=== PATIENT | female | born 2000 | race Caucasian/White ===

== ENCOUNTER 2020-02-06 20:03 | Emergency (ER) | payer BC, SELFPAY ==
--- NOTE | 2020-02-06 20:32 | PC.NURSE ---
PATIENT TO NVC FROM REGISTRATION AT THIS TIME
[2020-02-06 20:35] VITALS: BP 146/77; PULSE 82; RESP 19; TEMP 36.9; O2SAT 99; BMI 31.9
--- NOTE | 2020-02-06 20:48 | HMH.EDUTC ---
[facility] Disposition Clinical Impression: Viral upper respiratory infection, Encounter for laboratory testing for COVID-19 virus Disposition: Home, Self-Care Condition on Discharge: Good Instructions: DI for Viral Upper Respiratory Infection -- Adult, Preventing the Spread of Coronavirus Discharge Instructions Additional Instructions: *Monitor Temp, Over the counter Motrin or Tylenol as directed/as needed Tylenol every 4 hours and Motrin every 6 hours (as long as your family doctor has told you that you can take it) for fever or pain. and straight to ER if unable to lower temp less than 101.0 after medication given *Warm salt water gargles may help to soothe the throat *Throat Lozenges *Warm fluids like tea with honey may help to soothe the throat *Sleep elevated *Humidifier/Vaporizer Your throat swab was sent for culture. Those results are typically sent to your primary care. Be sure to follow up in 2-3 days with your family doctor/primary care physician if no improvement so they can review those result and treat if necessary. If you don?t have a primary care doctor, I recommend you get one but in the mean time, you will have to return to a walk in clinic Follow up IMMEDIATELY for new or worsening symptoms or no Noticeable improvement over the next 48-72 hours. 911 for difficulty breathing or swallowing You was tested for today for COVID19 your test result should be back in the next 24-48 hours, you may call to the [facility] tomorrow to see if your test results are back and the result [phone] [facility] hours are 9am-9pm You was given a handout with instructions for Self Quarantine and Self isolation for while you wait on test results and what to do if they are positive If you are positive the Health Dept will be contacting you also Referrals: Anju [facility] [Primary Care Provider] - As needed Forms: Work/School Release Time of Disposition: 20:54 Medical Decision Making - Jeff Inquiry Pt receiving controlled substance: No Jeff was queried for this patient: No Vital Signs: 02/06/20 20:35 Temperature 98.4 F Temperature Source Oral Pulse Rate [Right Brachial] 82 Respiratory Rate 19 Blood Pressure [Right Arm] 146/77 H Blood Pressure Mean [Right Arm] 100 Blood Pressure Source [Right Arm] Automatic Cuff Blood Pressure Position [Right Arm] Sitting 02 Sat by Pulse Oximetry 99 Oxygen Delivery Method Room Air - Lab Data Lab results reviewed: Yes: I reviewed the patient's lab results. Lab Results 02/06/20 20:08: Influenza Type A Ag Negative, Influenza Type B Ag Negative 02/06/20 20:08: Strep Scn Rapid Clinic Negative Orders (Tests/Meds): ORDERS Category Date Time Status Covid-19 Nasal PCR Sendout [facility] Stat Lab 02/06/20 20:38 Received Strep Screen Confirmation Stat Micro 02/06/20 20:08 Received [facility] HPI - General Stated complaint: covid test,Sore throat,cough,SOB,weakness,Diarrhea Time Seen by Provider: 02/06/20 20:48 Mode of Arrival: Ambulatory Source of Information: Patient Limitations: No Limitations Description of Symptoms (Recalled from Triage Doc. by RN): PATIENT C/O COUGH, SOA, HEADACHE, AND SORE THROAT X 2 DAYS; REQUESTING COVID TEST HEENT Symptoms (Recalled from RN notes): Yes Resp Symptoms (Recalled from RN notes): Yes Skin Symptoms (Recalled from RN notes): No MS Symptoms (Recalled from RN notes): No Functional Status (Recalled from RN notes): WNL - History of Present Illness Provider Complaint: Patient states that she has been having cough, sore throat, unable to breath out of her nose, headache and body aches with low grade fever for several days States that she thought it was her allergies and would go away but it hasnt States that she called her PCP and they told her that she needed to come and get tested for COVID States that today her throat was hurting worse so she came in - Related Data Home Medications Medication Instructions Recorded Confirmed Etonogestrel [Nexplanon] 68 mg SQ
[2020-02-06 20:55] LABS: UTC Influenza A Antigen Negative (Negative); UTC Influenza B Antigen Negative (Negative); UTC Strep Screen (Rapid) Negative (Negative)
[2020-02-06 20:59] VITALS: BP 146/77; PULSE 82; RESP 19; TEMP 36.9; O2SAT 99
--- NOTE | 2020-02-07 20:45 | PC.NURSE ---
PT NOTIFIED OF POSITIVE COVID RESULT
[2020-02-07 21:20] LABS: Covid-19 Nasal PCR Sendout Lex Positive
== END 2020-02-06 21:00 | disposition home or self-care (01) ==
PROVIDERS: Emergency Provider Nurse Practitioner; PCP Family Medicine Geriatric Medicine
DX: U07.1 COVID-19 (principal)
CPT/HCPCS: 87804; 87880; 99201; U0004